=== PATIENT | female | born 1990 | race American Indian/Alaskan Native ===

== ENCOUNTER 2017-02-03 02:38 | Emergency (ER) | payer MEDICAID ==
[2017-02-03 01:34] LABS: Bacteria,Urine 4+ /HPF (Negative); Bilirubin,Urine NEG (Negative); Blood,Urine SM (Negative); Ketones,Urine 20 mg/dL (Negative); Leukocyte Esterase,Urine LG (Negative); Mucus,Urine 3+ /HPF; Nitrite,Urine POS (Negative)
[2017-02-03 01:39] LABS: WBC,Urine > 182.0 /HPF (0.0-6.0)
[2017-02-03 01:44] LABS: Urine Drugs of Abuse Note Disclamer
[~2017-02-03 02:38] MED LIST: LACTATED RINGERS 500 ML IV ONE
--- NOTE | 2017-02-03 02:38 | Event Note ---
Date: 02/03/17 ([place] established) Pt presents with no PNC US done tonight EDC 06/12/17 remainder of US wnl. Pt cleared to return to ED for evaluation of kidney issues. Explained all findings to pt Encouraged her to get into [facility]. All questions addressed. Pt transported to ED by
[2017-02-03] MEDS ORDERED: MACROBID PO ONE (04:26)
[2017-02-03] MEDS ORDERED: TYLENOL PO ONE (04:26)
[2017-02-03 05:13] LABS: Basophils % (Auto) 0.3 % (0.0-1.8); Eosinophils % (Auto) 4.4 % (0.0-4.3); Hematocrit 30.8 % (30.3-42.9); Hemoglobin 9.9 gm/dl (10.1-14.3); Mean Corpuscular HGB Conc 32 % (30-34); Platelet Count 254 K/mm3 (140-440); Red Blood Count 4.72 M/mm3 (3.65-5.03); Red Cell Distribution Width 17.7 % (13.2-15.2); White Blood Count 9.3 K/mm3 (4.5-11.0)
[2017-02-03 05:17] LABS: Mean Corpuscular Hemoglobin 21 pg (28-32); Mean Corpuscular Volume 65 fl (79-97)
[2017-02-03 05:23] LABS: Anion Gap 17 mmol/L; Blood Urea Nitrogen 6 mg/dL (7-17); Carbon Dioxide 23 mmol/L (22-30); Chloride 99.1 mmol/L (98-107); Glucose 84 mg/dL (65-100); Potassium 3.3 mmol/L (3.6-5.0); Sodium 136 mmol/L (137-145)
--- NOTE | 2017-02-03 05:40 | Ultrasound Report ---
FINAL REPORT PROCEDURE: US RENAL BILAT TECHNIQUE: Real-time sonography in multiple planes of the kidneys, ureters and urinary bladder was performed with image documentation. CPT 66586 HISTORY: Right flank pain. Blood in urine. Infection. COMPARISON: No prior studies are available for comparison. FINDINGS: The right kidney measures 11.9 x 7.3 x 6.7 centimeters. Cortical thickness 1.9 centimeters. Mild to moderate right hydronephrosis. No calculus or mass. Left kidney measures 12.1 x 7.2 x 6.4 centimeters. Cortical thickness 2.1 centimeters. No hydronephrosis, mass, or calculus. Limited visualization of the bladder. IMPRESSION: Mild to moderate right hydronephrosis.
--- NOTE | 2017-02-03 08:43 | Ultrasound Report ---
OB ULTRASOUND History: well-being, no care. Technique: Transabdominal ultrasound with Doppler interrogation. Gestation: Single Position: Cephalic Amniotic Fluid: Normal PARIS = normal cm Placenta: Posterior Placental Grade: 0 Heart Rate: 146 BPM Cervical length: 3.3 cm (Normal > 3 cm) NEUROANATOMY VISUALIZED: Choroid Plexus Cisterna Magnum Cerebellum Lateral Ventricle ANATOMY VISUALIZED: Stomach Kidneys Bladder Diaphragm 4 Chamber Heart Heart 3 Vessel Cord Abd. Cord Insert SPINE VISUALIZED: Longitudinal Transverse BPD: 5.1 cm = 21 w 2 d HC: 19.1 cm = 21 w 2 d AC: 16.4 cm = 21 w 3 d FL: 3.8 cm = 22 w 0 d HC/AC Ratio: 1.17 Estimated Weight: 463 grams LMP: Uncertain Clinical age = w d EDC: US Gest. Age = 21 w 3 d EDC: 06/13/17
[2017-02-03 10:00] VITALS: BP 97/43
[2017-02-03] MEDS ORDERED: K-DUR PO ONE (10:21)
--- NOTE | 2017-02-03 10:21 | Emergency Department Report ---
ED Abdominal Pain HPI - General Chief Complaint: Abdominal Pain Stated Complaint: KIDNEY PAIN Time Seen by Provider: 02/03/17 10:05 Source: patient Mode of arrival: Ambulatory Limitations: No Limitations - History of Present Illness Initial Comments: Patient is a 26-year-old female at approximately 21 weeks and 3 days presenting with right lower quadrant and right flank pain. Patient reports no care N1 week history of right-sided flank pain, dysuria, and increased urinary frequency. Associated nausea and vomiting 1 episode. She denies tobacco, alcohol, illicit drug use. Otherwise no fevers, chills, chest pain, shortness of breath, extremity pain, vaginal bleeding, fluid loss, travel, or sick contacts. MD Complaint: abdominal pain -: Gradual Location: RLQ, R flank Severity: moderate Severity scale (0 -10): 8 Quality: aching Consistency: constant Improves With: nothing Worsens With: nothing Associated Symptoms: nausea, vomiting, dysuria - Related Data Previous Rx's Medication Instructions Recorded Last Taken Type Nitrofurantoin Ceiba/M-Cryst 100 mg PO Q12HR #20 capsule 02/03/17 Unknown Rx [Macrobid CAP] Allergies Allergy/AdvReac Type Severity Reaction Status Date / Time No Known Allergies Allergy Verified 04/14/14 23:10 ED Review of Systems ROS: Stated complaint: KIDNEY PAIN Other details as noted in HPI Comment: All other systems reviewed and negative ED Past Medical Hx - Past Medical History Previous Medical History?: Yes Hx Hypertension: No Hx Diabetes: No Hx Deep Vein Thrombosis: No Hx Renal Disease: Yes (Kidney failure in 2005) Hx Sickle Cell Disease: No Hx Seizures: No Hx Asthma: No Hx HIV: No Additional medical history: Right kidney failure, 21 weeks - Surgical History Additional Surgical History: Episiotomy - Social History Smoking Status: Never Smoker - Medications Home Medications: Home Medications Medication Instructions Recorded Confirmed Last Taken Type Nitrofurantoin Ceiba/M-Cryst 100 mg PO Q12HR #20 capsule 02/03/17 Unknown Rx [Macrobid CAP] ED Physical Exam - General Limitations: No Limitations General appearance: alert, in no apparent distress - Head Head exam: Present: atraumatic, normocephalic - Eye Eye exam: Present: normal appearance - ENT ENT exam: Present: mucous membranes moist - Neck Neck exam: Present: normal inspection - Respiratory Respiratory exam: Present: normal lung sounds bilaterally. Absent: respiratory distress - Cardiovascular Cardiovascular Exam: Present: regular rate, normal rhythm. Absent: systolic murmur, diastolic murmur, rubs, gallop - GI/Abdominal GI/Abdominal exam: Present: soft, tenderness (right lower quadrant , right flank ), normal bowel sounds. Absent: distended, guarding, rebound, rigid - Extremities Exam Extremities exam: Present: normal inspection - Back Exam Back exam: Present: normal inspection, full ROM, CVA tenderness (R) - Neurological Exam Neurological exam: Present: alert, oriented X3 - Psychiatric Psychiatric exam: Present: normal affect, normal mood - Skin Skin exam: Present: warm, dry, intact, normal color. Absent: rash ED Course Vital Signs 02/03/17 02/03/17 02/03/17 04:14 04:33 09:59 Temperature 99.1 F 98.8 F Pulse Rate 68 78 Respiratory 18 20 16 Rate Blood Pressure 110/57 Blood Pressure 97/43 [Left] O2 Sat by Pulse 100 100 Oximetry 02/03/17 10:00 Temperature Pulse Rate Respiratory 16 Rate Blood Pressure Blood Pressure [Left] O2 Sat by Pulse 100 Oximetry ED Medical Decision Making - Lab Data Result diagrams: 02/03/17 04:49 02/03/17 04:49 - Radiology Data Radiology results: report reviewed US: reviewed by me, patient is approximately 21weeks and 3 days - Medical Decision Making Pt (+)UTI, patient was given macrobid at 0426 this AM I discussed with the patient importance of care. Pt understood and reports she had no care due to a recent re-location. Pt given a list of providers to follow up with. Pt has no fever, no WBC count, and will be discharged home with macrobid 100mg BID x 10 days. I instructed the patient to follow up with a provider in 1-2 days , return if her sx worsen. Pt understood Critical care attestation.: If time is entered above; I have spent that time in minutes in the direct care of this critically ill patient, excluding procedure time. ED Disposition Clinical Impression: UTI (urinary tract infection) during Disposition: TO HOME OR SELFCARE Is pt being admited?: No Condition: Stable Instructions: Abdominal Pain (ED), Urinary Tract Infection in Women (ED) Prescriptions: Nitrofurantoin Ceiba/M-Cryst [Macrobid CAP] 100 mg PO Q12HR #20 capsule Referrals: WHIT WILHELM MD [Primary Care Provider] - 7 Days Forms: [facility] Discharge Summary Print Language: OCCITAN
[2017-02-03] MEDS ORDERED: NACL 0.9% 1000 ML 1,000 ML IV ONE (10:23)
== END 2017-02-03 13:50 | disposition home or self-care (01) ==
LOC: TRG 02:38 → ED 02:38 → TRG 02:38 → EDSTATUS 02:41 → ED 04:25 → TRG 13:50
DX: O23.32 Infections of other parts of urinary tract in pregnancy, second trimester (principal); Z3A.21 21 weeks gestation of pregnancy; N19 Unspecified kidney failure
CPT/HCPCS: 36415; 51701; 76770; 76805; 80048; 80307; 81001; 85025; 87076; 87086; 87186; 96360; 99284; J7030

== ENCOUNTER 2017-04-27 00:05 | Outpatient (CLI) | payer MEDICAID ==
[2017-04-27] MEDS ORDERED: LACTATED RINGERS 500 ML IV ONE (00:18)
[2017-04-27 00:36] VITALS: BP 124/55
[2017-04-27 01:08] LABS: Bilirubin,Urine NEG (Negative); Blood,Urine NEG (Negative); Ketones,Urine TR mg/dL (Negative); Leukocyte Esterase,Urine SM (Negative); Mucus,Urine 2+ /HPF; Nitrite,Urine NEG (Negative)
--- NOTE | 2017-04-27 10:36 | Ultrasound Report ---
ULTRASOUND BIOPHYSICAL PROFILE: History: Decreased movement Technique: Transabdominal ultrasound with Doppler interrogation. 2 - breathing movements 2 - movements 2 - posture and tone 2 - Qualitative amniotic fluid volume 8 - TOTAL SCORE OF POSSIBLE 8 Heart Rate (bpm) 141
--- NOTE | 2017-04-27 10:37 | Ultrasound Report ---
ULTRASOUND OB LIMITED History: well being Technique: Transabdominal ultrasound with Doppler interrogation. Gestation: Single Position: Cephalic Amniotic Fluid: Normal PARIS = 14.1 cm Placenta: Fundal Placental Grade: 1 Heart Rate: 141 BPM
== END 2017-04-27 02:46 | disposition home or self-care (01) ==
LOC: TRG 00:05
PROVIDERS: ATTEND Obstetrics & Gynecology
DX: O36.8130 Decreased fetal movements, third trimester, not applicable or unspecified (principal); O47.03 False labor before 37 completed weeks of gestation, third trimester; Z3A.34 34 weeks gestation of pregnancy
CPT/HCPCS: 59025; 76815; 76819; 81001

== ENCOUNTER 2017-04-27 16:56 | Outpatient (CLI) | payer MEDICAID ==
[2017-04-27] MEDS ORDERED: LACTATED RINGERS 500 ML IV ONE (17:22)
[2017-04-27] MEDS ORDERED: IMODIUM PO STA (17:37)
[2017-04-27 18:00] LABS: Bacteria,Urine 1+ /HPF (Negative); Bilirubin,Urine NEG (Negative); Blood,Urine NEG (Negative); Ketones,Urine 20 mg/dL (Negative); Leukocyte Esterase,Urine SM (Negative); Mucus,Urine 3+ /HPF; Nitrite,Urine NEG (Negative); Urobilinogen,Urine < 2.0 mg/dL (<2.0)
[2017-04-27] MEDS ORDERED: ZOFRAN IV ONE (18:00)
[2017-04-27] MEDS ORDERED: LACTATED RINGERS 1,000 ML IV SCH (18:00)
[2017-04-27 18:14] VITALS: BP 107/42
[2017-04-27 19:13] LABS: Basophils % (Auto) 0.4 % (0.0-1.8); Eosinophils % (Auto) 2.6 % (0.0-4.3); Hematocrit 29.7 % (30.3-42.9); Hemoglobin 9.1 gm/dl (10.1-14.3); Mean Corpuscular HGB Conc 31 % (30-34); Platelet Count 255 K/mm3 (140-440); Red Blood Count 4.54 M/mm3 (3.65-5.03); Red Cell Distribution Width 16.6 % (13.2-15.2); White Blood Count 8.1 K/mm3 (4.5-11.0)
[2017-04-27 19:20] LABS: Mean Corpuscular Hemoglobin 20 pg (28-32); Mean Corpuscular Volume 65 fl (79-97)
[2017-04-27 19:26] LABS: Alanine Aminotransferase 7 units/L (7-56); Albumin 3.2 g/dL (3.9-5); Alkaline Phosphatase 73 units/L (35-129); Anion Gap 17 mmol/L; BUN/Creatinine Ratio 16.66; Blood Urea Nitrogen 5 mg/dL (7-17); Calcium 8.8 mg/dL (8.4-10.2); Carbon Dioxide 20 mmol/L (22-30); Chloride 101.2 mmol/L (98-107); Glucose 98 mg/dL (65-100); Potassium 3.6 mmol/L (3.6-5.0); Sodium 135 mmol/L (137-145); Total Protein 6.4 g/dL (6.3-8.2)
[2017-04-27] MEDS ORDERED: VISTARIL PO ONE (20:00)
== END 2017-04-27 19:55 | disposition home or self-care (01) ==
LOC: TRG 16:56
PROVIDERS: ATTEND Obstetrics & Gynecology
DX: O47.03 False labor before 37 completed weeks of gestation, third trimester (principal); Z3A.35 35 weeks gestation of pregnancy
CPT/HCPCS: 36415; 80053; 81001; 85025; 96360; J7120; Q0177

== ENCOUNTER 2017-05-08 14:40 | Outpatient (CLI) | payer MEDICAID ==
[2017-05-08] MEDS ORDERED: LACTATED RINGERS 500 ML IV ONE (15:47)
[2017-05-08 15:51] VITALS: BP 106/53
== END 2017-05-08 16:17 | disposition home or self-care (01) ==
LOC: TRG 14:40
PROVIDERS: ATTEND Obstetrics & Gynecology
DX: O47.03 False labor before 37 completed weeks of gestation, third trimester (principal); Z3A.35 35 weeks gestation of pregnancy
CPT/HCPCS: 59025

== ENCOUNTER 2017-05-09 00:10 | Outpatient (CLI) | payer MEDICAID ==
[2017-05-09 00:31] VITALS: BP 108/57
[2017-05-09] MEDS ORDERED: LACTATED RINGERS 500 ML IV ONE (00:33)
[2017-05-09] MEDS ORDERED: NORCO 10/325 PO PRN (01:01)
== END 2017-05-09 01:20 | disposition home or self-care (01) ==
LOC: TRG 00:10
PROVIDERS: ATTEND Obstetrics & Gynecology
DX: O62.9 Abnormality of forces of labor, unspecified (principal); Z3A.36 36 weeks gestation of pregnancy

== ENCOUNTER 2017-05-22 12:15 | Outpatient (CLI) | payer MEDICAID ==
[2017-05-22 13:03] VITALS: BP 133/58
== END 2017-05-22 13:17 | disposition home or self-care (01) ==
LOC: TRG 12:15
PROVIDERS: ATTEND Obstetrics & Gynecology
DX: O47.1 False labor at or after 37 completed weeks of gestation (principal); Z3A.37 37 weeks gestation of pregnancy

== ENCOUNTER 2017-05-23 09:44 | Inpatient (IN) | payer MEDICAID ==
--- NOTE | 2017-05-23 10:26 | Anesthesia Consultation ---
Anesthesia Consult and Med Hx Date of service: 05/23/17 - Airway Anesthetic Teeth Evaluation: Good ROM Head & Neck: Adequate Mental/Hyoid Distance: Adequate Mallampati Class: Class II Intubation Access Assessment: Probably Good - Pulmonary Exam CTA: Yes - Pre-Operative Health Status ASA Pre-Surgery Classification: ASA2 Proposed Anesthetic Plan: Spinal - Pulmonary Hx Asthma: No - Cardiovascular System Hx Hypertension: No - Central Nervous System Hx Seizures: No Hx Psychiatric Problems: No - Endocrine Hx Renal Disease: Yes (Fluid in right kidney) Hx Hypothyroidism: No Hx Hyperthyroidism: No - Hematic Hx Anemia: No Hx Sickle Cell Disease: No - Other Systems Hx Alcohol Use: No - Additional Comments Anesthesia Medical History Comments: NAC previously.
--- NOTE | 2017-05-23 10:26 | Anesthesia Day of Surgery ---
Anesthesia Day of Surgery - Day of Surgery Patient Examined: Yes Patient H&P Reviewed: Yes Patient is NPO: Yes
[2017-05-23] MEDS ORDERED: LACTATED RINGERS 1,000 ML IV SCH (11:00)
[2017-05-23] MEDS ORDERED: PITOCin/NS 20 UNIT/1000ML DRIP 20 UNITS/1,000 ML BAG IV SCH ×2 (11:00→16:00)
[2017-05-23] MEDS ORDERED: REGLAN IV NR (11:00)
[2017-05-23] MEDS ORDERED: PEPCID IV NR (11:00)
[2017-05-23] MEDS ORDERED: BICITRA PO NR (11:00)
[2017-05-23] MEDS ORDERED: ANCEF/STERILE WATER 2 GM/20 ML 2 GM/20 ML SYRINGE IV NR (11:00)
[2017-05-23 11:22] LABS: Basophils % (Auto) 0.2 % (0.0-1.8); Hematocrit 29.6 % (30.3-42.9); Hemoglobin 9.1 gm/dl (10.1-14.3); Mean Corpuscular HGB Conc 31 % (30-34); Platelet Count 302 K/mm3 (140-440); Red Blood Count 4.64 M/mm3 (3.65-5.03); Red Cell Distribution Width 17.4 % (13.2-15.2); White Blood Count 10.4 K/mm3 (4.5-11.0)
[2017-05-23 11:24] LABS: Mean Corpuscular Hemoglobin 20 pg (28-32); Mean Corpuscular Volume 64 fl (79-97)
--- NOTE | 2017-05-23 11:46 | History and Physical Report ---
History of Present Illness Date of examination: 05/23/17 Date of admission: 05/23/17 09:44 Chief complaint: my water broke History of present illness: Pt is a 27 year old -[place] female JACKLYN 06/06/17 at 38w0d who presents with advanced cervical dilation of 5cm and rupture of membranes. She denies vaginal bleeding. She has a h/o 4th degree perineal laceration and two reconstructive surgery x 2 and was scheduled for a primary section on 05/30/17. She has had care at [facility] since entry into care at 25 wks complicated by h/o 4th degree perineal laceration, cystitis s/p antibiotic treatment, genital herpes without lesion or prodrome, anemia on iron thrice daily, and obesity s/p M referral. She is GBS unknown because she had no visits from 32 wks until yesterday. She desires tubal ligation. Past History Past Medical History: kidney stones (2004 ), hematologic disorders (anemia ) Past Surgical History: [employer]/uterine surgery (perineal repair x 2 ) [employer] History: herpes Family/Genetic History: diabetes, heart disease, hypertension, stroke Social history: no significant social history - Obstetrical History Expected Date of Delivery: 06/06/17 Actual Gestation: 38 Week(s) 0 Day(s) : 4 Para: 3 Hx # Term Pregnancies: 3 Number of Pregnancies: 0 Spontaneous Abortions: 0 Induced : 0 Number of Living Children: 3 Medications and Allergies Allergies Allergy/AdvReac Type Severity Reaction Status Date / Time No Known Allergies Allergy Verified 04/14/14 23:10 Home Medications Medication Instructions Recorded Confirmed Last Taken Type Nitrofurantoin Scurry/M-Cryst 100 mg PO Q12HR #20 capsule 02/03/17 Unknown Rx [Macrobid CAP] Active Meds: Active Medications Citric Acid/Sodium Citrate (Bicitra) 30 ml PO ONCE NR Stop: 05/23/17 18:00 Last Admin: 05/23/17 11:40 Dose: 30 ml Famotidine (Pepcid) 20 mg IV ONCE NR Stop: 05/23/17 18:00 Last Admin: 05/23/17 11:38 Dose: 20 mg Cefazolin Sodium (Ancef/Sterile Water 2 Gm/20 Ml) 2 gm in 20 mls @ 80 mls/hr IV PREOP NR PRN Reason: Protocol Stop: 05/23/17 15:00 Lactated Ringer's (Lactated Ringers) 1,000 mls @ 2,250 mls/hr IV PREOP VIKTOR Stop: 05/24/17 11:27 Oxytocin/Sodium Chloride (Pitocin/Ns 20 Unit/1000ml Drip) 20 units in 1,000 mls @ 0 mls/hr IV TITR VIKTOR PRN Reason: As Directed Influenza Virus Vaccine Quadrival (Fluarix Quad [id number](36 Mos+)) 0.5 ml IM .ONCE ONE Stop: 05/23/17 11:30 Metoclopramide HCl (Reglan) 10 mg IV ONCE NR Stop: 05/23/17 18:00 Last Admin: 05/23/17 11:39 Dose: 10 mg Review of Systems All systems: negative - Vital Signs Vital signs: Vital Signs Temp 98.4 F 05/23/17 10:23 Temp Pulse Resp BP Pulse Ox 98.4 F 05/23/17 10:23 - Physical Exam Breasts: Positive: deferred Cardiovascular: Regular rate Lungs: Positive: Clear to auscultation Abdomen: Positive: soft (obese ) Uterus: Positive: enlarged (gravid ) Extremities: Positive: normal - Obstetrical FHR: category 2 Uterine Contraction Monitor Mode: External Cervical Dilatation: 5 (per RN ) Results Result Diagrams: 05/23/17 10:45 Abnormal lab results 05/23/17 Range/Units 10:45 Hgb 9.1 L (10.1-14.3) gm/dl Hct 29.6 L (30.3-42.9) % MCV 64 L (79-97) fl MCH 20 L (28-32) pg RDW 17.4 H (13.2-15.2) % Scurry % (Auto) 10.2 H (0.0-7.3) % Scurry # 1.1 H (0.0-0.8) K/mm3 All other labs normal. Assessment and Plan A: IUP at 38w0d PROM H/o 4th degree perineal laceration with plan for scheduled delivery Anemia Obesity Genital Herpes Undesired Fertility P: Admit to labor and delivery and proceed with primary section, bilateral tubal ligation and other indicated procedures.
[2017-05-23] MEDS ORDERED: Fluarix Quad 2017-2018(36 MOS+) IM ONE (12:00)
[2017-05-23] MEDS ORDERED: SUBLIMAZE ONE (12:12)
[2017-05-23] MEDS ORDERED: ePHEDrine SULFATE ONE (12:30)
[2017-05-23] MEDS ORDERED: LACTATED RINGERS 1,000 ML ONE (12:32)
[2017-05-23] MEDS ORDERED: ZOFRAN ONE (12:39)
[2017-05-23] MEDS ORDERED: ROBINUL ONE (12:44)
--- NOTE | 2017-05-23 13:52 | Post Anesthesia Evaluation ---
- Post Anesthesia Evaluation Patient Participated: Yes Airway Patent: Yes Stable Respiratory Function: Yes Nausea/Vomiting: No Temp > 96.8F: Yes Pain Manageable: Yes Adequeate Hydration: Yes Anesthesia Complications: No Block Receding Appropriately: Not Applicable Patient on Ventilator: No
--- NOTE | 2017-05-23 14:41 | Procedure Note ---
OB Delivery Note - Delivery Date of Delivery: 05/23/17 Surgeon: HARLEY MONTALVO Estimated blood loss: other (800 mL) - Section Preop diagnosis: other (H/o 4t degree perineal laceration ) Postop diagnosis: same section procedure: section, primary low transverse Disposition: PACU Complications: none Narrative: Please see operative report. - A at 1 minute: 8 at 5 minutes: 9 Infant Gender: Female (3309g (7lb 5oz) @ 1252 pm)
--- NOTE | 2017-05-23 14:43 | Operative Report ---
Operative Report Operative Report: Date of procedure: May 23, 2017 Preoperative diagnosis: 1) IUP at 38w0d 2) Premature Rupture of Membranes 3) H/ o Fourth Degree perineal laceration 4) Obesity Postoperative diagnosis: Same Procedure: Primary low transverse section Surgeon: Prema Pickering M.D. Anesthesia: Spinal Findings: 1) Viable female , Apgars 8 and 9, weight 3309g, (7 lb 5 oz). Nuchal cord x 1 2) Normal-appearing uterus ovaries and tubes Estimated blood loss: 800 mL IV fluids: 2000 mL Urine output: 100 mL, clear at the end of the procedure Drains: Rabago to gravity Specimens: None Complications: None. Counts correct x 3 Disposition: Stable to PACU Indication for procedure: Pt is a 27 year old -Bangl[place] female at 38w0d presents with gross rupture of membranes and a h/o a fourth degree perineal laceration scheduled for at 39 wks. The decision was made to proceed with primary section. Operation in detail: After the risks, benefits, alternatives and complications were explained to the patient she gave informed consent for the procedure. She was subsequently taken to the operating room where spinal-epidural anesthesia was noted to be adequate. She was subsequently placed in the dorsal supine position with leftward tilt and prepped and draped in a normal sterile fashion. heart tones were noted to be in the 140s prior to incision. A timeout was performed. A Pfannenstiel skin incision was made with the knife and carried down to the layer of the fascia with the Bovie. The fascia was incised in the midline and the fascial incision was extended bilaterally with the Bovie. Attention was then turned to the superior aspect of the incision which was grasped with two Kochers, tented up, and dissected off the rectus muscles. Attention was then turned to the inferior aspect of the incision which was grasped with two Kochers , tented up and dissected off the rectus muscles. The rectus muscles were then in the midline for adequate visualization. The peritoneum was then entered bluntly. The peritoneal incision was extended with good visualization of the bladder. The peritoneal incision was then stretched. An Aiden self- retaining retractor was placed for visualization. The bladder blade was placed. The vesicouterine peritoneum was grasped with smooth pickups and incised with Metzenbaum scissors. Metzenbaum scissors were used to extend the incision bilaterally. The bladder flap was then created digitally and the bladder blade was replaced. A transverse incision was made in the lower uterine segment with a knife and extended bilaterally with the bandage scissors. The head was delivered without difficulty followed by shoulders and body. was bulb suctioned at delivery. The cord was clamped and cut and the was handed to NICU staff in attendance. Cord blood was collected. The placenta was then delivered manually. The uterus was then exteriorized and cleared of all clots and debris. The hysterotomy was then reapproximated with 0 Vicryl in a running locked fashion. The hysterotomy was inspected and hemostasis was noted. The Aiden self- retaining retractor was removed. The gutters were irrigated and cleared of all clots and debris. The hysterotomy was again inspected and noted to be hemostatic. Surgicel was placed over the hysterotomy. The peritoneum was then reapproximated with 2-0 Vicryl in an interrupted fashion. The rectus muscles were covered with Surgicel and noted to be hemostatic. The fascia was reapproximated with 0 Vicryl in a running fashion. The skin was reapproximated with 4-0 Vicryl in a subcuticular fashion. The incision was then covered with steri strips and a pressure dressing. The procedure was then ended. The patient tolerated the procedure well and was taken to the PACU in stable condition. All instrument, lap, and needle counts were correct 3.
[2017-05-23] MEDS ORDERED: BENADRYL IV PRN (15:00)
[2017-05-23] MEDS ORDERED: SODIUM CHLORIDE FLUSH SYRINGE 10 ML IV NR (15:32)
[2017-05-23] MEDS ORDERED: ZOFRAN IV PRN ×2 (15:32→16:00)
[2017-05-23] MEDS ORDERED: TORADOL IV PRN (15:32)
[2017-05-23] MEDS ORDERED: MORPHINE IV PRN ×4 (15:32→16:00)
[2017-05-23] MEDS ORDERED: SODIUM CHLORIDE FLUSH SYRINGE 10 ML IV PRN (16:00)
[2017-05-23] MEDS ORDERED: NARCAN 0.4 MG/1 ML IV PRN ×2 (16:00)
[2017-05-23] MEDS ORDERED: D5LR 1,000 ML IV SCH (16:00)
[2017-05-23] MEDS ORDERED: TYLENOL PO PRN (16:00)
[2017-05-23] MEDS ORDERED: TUCKS PAD TP PRN (16:00)
[2017-05-23] MEDS ORDERED: LANSINOH TP PRN (16:00)
[2017-05-23] MEDS ORDERED: MYLICON PO PRN (16:00)
[2017-05-23 16:11] LABS: Hematocrit 28.5 % (30.3-42.9)
[2017-05-23] MEDS: TORADOL IV PRN ×2 (17:35→23:23)
[2017-05-23] MEDS: ANCEF/NS 1 GM/50 ML 1 GM/50 ML BAG IV SCH (20:27)
[2017-05-23] MEDS: FEOSOL PO SCH (22:07)
[2017-05-24] MEDS: ANCEF/NS 1 GM/50 ML 1 GM/50 ML BAG IV SCH (04:25)
[2017-05-24] MEDS: TORADOL IV PRN (05:37)
[2017-05-24] MEDS ORDERED: BOOSTRIX IM ONE (06:00)
[2017-05-24 06:22] LABS: Hematocrit 25.3 % (30.3-42.9); Hemoglobin 7.9 gm/dl (10.1-14.3)
[2017-05-24] MEDS ORDERED: PRENATAL VITAMIN PO SCH (10:00)
[2017-05-24] MEDS ORDERED: M-M-R II VACCINE SUB-Q ONE (11:00)
--- NOTE | 2017-05-24 13:16 | Progress Note ---
Assessment and Plan A/P POD # 1 s/p c/sec for 4th degree tear and repair tolerating diet pain controlled bleeding decreased deisres depo/nexplanon for control consider d/c home tomorrow Subjective - Subjective Date of service: 05/24/17 Principal diagnosis: Primary c/sec for 4th degree Patient reports: appetite normal, voiding normally, pain well controlled, ambulating normally [place]: doing well Objective - Vital Signs Latest vital signs: Vital Signs Temp Pulse Resp BP BP Pulse Ox 05/24/17 08:16 98.8 F 16 117/50 05/24/17 04:00 98.6 F 92 H 18 103/53 05/24/17 00:55 97.8 F 73 20 124/62 05/23/17 20:40 98 F 73 20 111/56 05/23/17 16:20 97.7 F 67 18 108/56 05/23/17 15:37 110 H 15 93/43 98 05/23/17 15:35 97.5 F L 78 16 106/49 05/23/17 15:00 78 18 97/42 05/23/17 14:50 97.5 F L 92 H 18 99/39 100 05/23/17 14:40 72 18 90/36 100 05/23/17 14:30 67 20 91/38 100 05/23/17 14:20 62 18 88/32 100 05/23/17 14:10 71 19 88/35 100 05/23/17 14:00 78 20 104/44 100 05/23/17 13:50 68 18 91/36 100 05/23/17 13:44 99 05/23/17 13:38 97.7 F 74 18 91/36 Intake and Output 05/23/17 05/24/17 05/24/17 23:59 07:59 15:59 Intake Total 410 240 Output Total 1400 800 Balance -990 -560 Intake: IV 50 ANCEF/NS 1 GM/50 ML 1 gm 50 In 50 ml @ 100 mls/hr IV Q8H [facility] Rx#:[id number] Oral 240 240 Intake, Free Water 120 Output: Urine 1400 800 Indwelling Catheter 1400 400 Void 400 Other: Total, Intake Amount 240 240 Total, Output Amount 900 400 - Exam Breasts: Present: normal Cardiovascular: Present: Regular rate, Normal S1 Lungs: Present: Clear to auscultation, Normal air movement Abdomen: Present: normal appearance, soft, normal bowel sounds. Absent: distention, tenderness Vulva: both: normal Uterus: Present: normal, firm, fundal height below umbilicus. Absent: bogginess , tenderness Deep Tendon Reflex Grade: Normal +2 Incision: Present: normal, dressed - Labs Labs: Abnormal lab results 05/23/17 05/24/17 Range/Units Unknown 06:03 Hgb 9.0 L 7.9 L (10.1-14.3) gm/dl Hct 28.5 L 25.3 L (30.3-42.9) %
[2017-05-24] MEDS: FEOSOL PO SCH ×2 (13:45→22:20)
[2017-05-24] MEDS: PERCOCET 5/325 PO PRN ×2 (13:45→20:13)
[2017-05-24] MEDS: MOTRIN PO PRN (20:13)
[2017-05-24] MEDS: MILK OF MAGNESIA PO SCH (20:17)
[2017-05-25] MEDS: MILK OF MAGNESIA PO SCH (02:17)
[2017-05-25] MEDS: PERCOCET 5/325 PO PRN ×2 (05:14→14:30)
[2017-05-25] MEDS: MOTRIN PO PRN (05:14)
--- NOTE | 2017-05-25 16:14 | Discharge Summary ---
Providers - Providers Date of Admission: 05/23/17 09:44 Date of discharge: 05/25/17 Attending physician: ROSANNE MOSER MD 05/23/17 15:32 Consult to Psychiatric Attendant [CONS] Routine Reason For Exam: Primary care physician: ROSANNE MOSER MD Hospitalization Reason for admission: section Delivery: Procedure: section, primary low transverse Episiotomy: none Laceration: none Incision: normal, dry, intact Other procedures: none complications: none Discharge diagnosis: IUP at term delivered [place] baby: female Hospital course: POD#2 doing well. ambulting weel. tolerated diet d/c home on pod #2 female bonding with baby d/c home to f/u for incision check in 2 weeks Condition at discharge: Good Disposition: DC-01 TO HOME OR SELFCARE Plan - Discharge Medications Prescriptions: Ibuprofen [Motrin] 600 mg PO Q8H PRN #30 tablet PRN Reason: Pain oxyCODONE /ACETAMINOPHEN [Percocet 5/325] 1 tab PO Q6HR PRN #30 tablet PRN Reason: Pain - Provider Discharge Summary Activity: routine, no sex for 6 weeks, no strenuous exercise Diet: routine Instructions: routine Additional instructions: [] Smoking cessation referral if applicable(refer to patient education folder for contact #) [] Refer to [facility] Booklet Call your doctor immediately for: * Fever > 100.5 * Heavy vaginal bleeding ( >1 pad per hour) * Severe persistent headache * Shortness of breath * Reddened, hot, painful area to leg or breast * Drainage or odor from incision. * Keep incision clean and dry at all times and follow doctor's instructions regarding bathing/showering - Follow up plan Follow up: ROSANNE MOSER MD [Primary Care Provider] - 14 Days
--- NOTE | 2017-05-25 16:14 | Progress Note ---
Assessment and Plan A/P POD # 2 s/p c/sec for 4th degree tear and repair tolerating diet pain controlled bleeding decreased VSS d/c home in stable conditionto f/u in 4 weeks Subjective - Subjective Date of service: 05/25/17 Principal diagnosis: Primary c/sec for 4th degree Patient reports: appetite normal, voiding normally, pain well controlled, flatus , ambulating normally : doing well, nursing well Objective - Vital Signs Latest vital signs: Vital Signs Temp Pulse Resp BP BP Pulse Ox 05/25/17 10:06 97.5 F L 75 18 110/46 98 05/25/17 00:25 98.8 F 60 16 113/71 05/24/17 16:35 98.7 F 84 16 115/56 Intake and Output 05/25/17 05/25/17 05/25/17 07:59 15:59 23:59 Intake Total 300 360 Balance 300 360 Intake: Oral 360 Intake, Free Water 300 Other: Total, Intake Amount 360 # Voids Void 1 - Exam Breasts: Present: deferred Cardiovascular: Present: Regular rate, Normal S1 Lungs: Present: Clear to auscultation, Normal air movement Abdomen: Present: normal appearance, soft, normal bowel sounds. Absent: distention, tenderness, guarding Vulva: both: normal Uterus: Present: normal, firm, bogginess, tenderness, fundal height below umbilicus Extremities: Present: normal Deep Tendon Reflex Grade: Normal +2 Incision: Present: normal, dry, intact
[2017-05-25] MEDS ORDERED: Fluarix Quad 2017-2018(36 MOS+) IM ONE (18:00)
[2017-05-25 18:31] VITALS: BP 114/78
== END 2017-05-25 18:34 | disposition home or self-care (01) | DRG 765 ==
LOC: APU 09:44 → OB 15:16
PROVIDERS: ADMIT Obstetrics & Gynecology; ATTEND Obstetrics & Gynecology
PROC: 10D00Z1 Extraction of Products of Conception, Low, Open Approach (ICD-10-PCS; principal; 2017-05-23)
DX: O42.02 Full-term premature rupture of membranes, onset of labor within 24 hours of rupture (principal); O98.32 Other infections with a predominantly sexual mode of transmission complicating childbirth; Z37.0 Single live birth; Z3A.38 38 weeks gestation of pregnancy; O99.02 Anemia complicating childbirth; D64.9 Anemia, unspecified; O99.214 Obesity complicating childbirth; E66.9 Obesity, unspecified; Z68.39 Body mass index [BMI] 39.0-39.9, adult; A60.00 Herpesviral infection of urogenital system, unspecified; O69.81X0 Labor and delivery complicated by cord around neck, without compression, not applicable or unspecified
CPT/HCPCS: 36415; 85014; 85018; 85025; 86592; 86850; 86900; 86901; 90471; 90686; 90715; 99211; A6250; G0463; J0690; J1885; J2270; J2405; J2590; J2765; J3010; J7120; J7121

== ENCOUNTER 2018-09-14 08:24 | Outpatient (CLI) | payer MEDICAID ==
[2018-09-14] MEDS ORDERED: LACTATED RINGERS 500 ML IV ONE (08:32)
[2018-09-14 08:40] VITALS: BP 115/58
[2018-09-14 09:29] LABS: Amphetamine Screen,Urine PRESUMPTIVE NEGATIVE; Benzodiazepines Screen,Urine PRESUMPTIVE NEGATIVE; Cannabinoid Screen,Urine PRESUMPTIVE NEGATIVE; Cocaine Screen,Urine PRESUMPTIVE NEGATIVE; Methadone Screen,Urine PRESUMPTIVE NEGATIVE; Opiate Screen,Urine PRESUMPTIVE NEGATIVE
[2018-09-14 09:31] LABS: Bilirubin,Urine NEG (Negative); Blood,Urine NEG (Negative); Color,Urine Yellow (Yellow); Mucus,Urine 2+ /HPF; Protein,Urine <15 mg/dL mg/dL (Negative); RBC,Urine < 1.0 /HPF (0.0-6.0)
[2018-09-14] MEDS ORDERED: TYLENOL PO ONE (10:00)
== END 2018-09-14 10:12 | disposition home or self-care (01) ==
LOC: TRG 08:24
PROVIDERS: ATTEND Obstetrics & Gynecology
DX: O47.02 False labor before 37 completed weeks of gestation, second trimester (principal); Z3A.23 23 weeks gestation of pregnancy
CPT/HCPCS: 80307; 81001

== ENCOUNTER 2018-11-14 16:20 | Outpatient (CLI) | payer MEDICAID ==
[2018-11-14] MEDS ORDERED: LACTATED RINGERS 500 ML IV ONE (18:30)
[2018-11-14 20:59] VITALS: BP 111/76
--- NOTE | 2018-11-14 22:02 | Ultrasound Report ---
PROCEDURE: US OB >= 14 WEEKS FETUS TECHNIQUE: Real-time transabdominal sonography of the uterus, placenta, amniotic fluid, adnexa, and fetus was performed with image documentation. Measurements were obtained to determine age/size. M-mode Doppler was used to document heartbeat. ADDITIONAL GESTATION: None HISTORY: COMPLETE OB COMPARISONS: None. FINDINGS: MATERNAL: Uterus and cervix: The cervix is closed measures 4.4 cm in length. Adnexa and ovaries: Not visualized. IUP: Single live intrauterine gestation. Position: Cephalic Placental position: Fundal, without previa . Grade 1 Amniotic fluid volume Normal. PARIS is 12.7 cm. Cardiac activity: Regular rhythm at 129 bpm. ANATOMY: Face/lips/nose: Normal. Cerebral ventricles: Normal. Cisterna magna/cerebellum: Normal. Heart: Normal. Stomach: Normal. Umbilical cord: 3 vessel umbilical cord with normal insertion. Kidneys: Normal. Bladder: Normal. Spine: Normal. Extremities: Normal. BIOMETRY: Biparietal diameter: 7.5 cm. Head circumference: 27.5 cm. abdominal circumference: 25.1 cm. Femur length: 5.9 cm. Ratio biometry: Normal . Estimated Weight: 1484 grams +/- grams. ounces +/- .ounces. . percentile. Mean Gestational Age (composite criteria) based on today's measurements: 30 weeks and 1 day. Estimated Due Date (earliest scan): 01/22/2019. IMPRESSION: Single live intrauterine gestation at 30 weeks and 1 day. Estimated due date: 01/22/2019. No anatomic abnormality. This document is electronically signed by Yong Infante MD., November 14 2018 10:00:27 PM ET
== END 2018-11-14 21:05 | disposition home or self-care (01) ==
LOC: TRG 16:20
PROVIDERS: ATTEND Obstetrics & Gynecology
DX: O47.03 False labor before 37 completed weeks of gestation, third trimester (principal); Z3A.32 32 weeks gestation of pregnancy
CPT/HCPCS: 59025; 76805

== ENCOUNTER 2018-12-16 23:13 | Outpatient (CLI) | payer MEDICAID ==
[2018-12-16] MEDS ORDERED: LACTATED RINGERS 1,000 ML IV ONE (23:59)
[2018-12-17 01:02] LABS: Bilirubin,Urine NEG (Negative); Blood,Urine NEG (Negative); Color,Urine Yellow (Yellow); Mucus,Urine 3+ /HPF; Protein,Urine <15 mg/dL mg/dL (Negative)
[2018-12-17 01:05] VITALS: BP 122/54
[2018-12-17] MEDS ORDERED: LACTATED RINGERS 1,000 ML IV ONE (01:19)
[2018-12-17] MEDS ORDERED: MORPHINE IM ONE (02:13)
[2018-12-17] MEDS ORDERED: PHENERGAN PO ONE (02:14)
[2018-12-17] MEDS ORDERED: PHENERGAN ONE (02:21)
[2018-12-17 03:20] LABS: Hematocrit 31.4 % (30.3-42.9); Mean Corpuscular HGB Conc 32 % (30-34); Platelet Count 252 K/mm3 (140-440); Red Blood Count 4.65 M/mm3 (3.65-5.03); Red Cell Distribution Width 16.6 % (13.2-15.2)
[2018-12-17 03:23] LABS: Mean Corpuscular Volume 68 fl (79-97)
== END 2018-12-17 02:40 | disposition home or self-care (01) ==
LOC: TRG 23:13
PROVIDERS: ATTEND Obstetrics & Gynecology
DX: O62.9 Abnormality of forces of labor, unspecified (principal); Z3A.36 36 weeks gestation of pregnancy; Z87.891 Personal history of nicotine dependence
CPT/HCPCS: 36415; 59025; 81001; 85027; 86592; 86850; 86900; 86901; 96360; 96361; 96372; J2270; J7120; Q0169

== ENCOUNTER 2018-12-31 22:58 | Outpatient (CLI) | payer MEDICAID ==
[2019-01-01 00:23] VITALS: BP 104/54
[2019-01-01] MEDS ORDERED: VISTARIL PO ONE (01:09)
== END 2019-01-01 01:34 | disposition home or self-care (01) ==
LOC: TRG 22:58
PROVIDERS: ATTEND Obstetrics & Gynecology
DX: O42.92 Full-term premature rupture of membranes, unspecified as to length of time between rupture and onset of labor (principal); Z3A.28 28 weeks gestation of pregnancy
CPT/HCPCS: 59025; Q0177

== ENCOUNTER 2019-01-03 04:43 | Inpatient (IN) | payer MEDICAID ==
[2019-01-03] MEDS ORDERED: LACTATED RINGERS 2,000 ML ONE (05:40)
[2019-01-03] MEDS ORDERED: BRETHINE ONE (05:41)
[2019-01-03] MEDS ORDERED: BICITRA ONE (06:02)
[2019-01-03] MEDS ORDERED: REGLAN ONE (06:02)
[2019-01-03] MEDS ORDERED: ANCEF/STERILE WATER 2 GM/20 ML 2 GM/20 ML SYRINGE IV ONE (06:02)
[2019-01-03] MEDS ORDERED: PEPCID IV ONE ×2 (06:02→06:03)
[2019-01-03] MEDS ORDERED: PITOCin/NS 20 UNIT/1000ML DRIP 40,000 MILLIUNITS/2,000 ML BAG IV ONE (06:02)
[2019-01-03] MEDS ORDERED: REGLAN IV ONE (06:03)
[2019-01-03] MEDS ORDERED: BICITRA PO ONE (06:03)
[2019-01-03 06:18] LABS: Basophils # (Auto) 0.1 K/mm3 (0.0-0.1); Basophils % (Auto) 0.5 % (0.0-1.8); Eosinophils # (Auto) 0.4 K/mm3 (0.0-0.4); Eosinophils % (Auto) 3.2 % (0.0-4.3); Hematocrit 31.5 % (30.3-42.9); Hemoglobin 10.2 gm/dl (10.1-14.3); Lymphocytes # (Auto) 2.8 K/mm3 (1.2-5.4); Lymphocytes % (Auto) 21.1 % (13.4-35.0); Mean Corpuscular HGB Conc 32 % (30-34); Monocytes # (Auto) 1.2 K/mm3 (0.0-0.8); Monocytes % (Auto) 9.3 % (0.0-7.3); Platelet Count 257 K/mm3 (140-440); Red Blood Count 4.78 M/mm3 (3.65-5.03); Red Cell Distribution Width 16.7 % (13.2-15.2)
[2019-01-03 06:19] LABS: Mean Corpuscular Volume 66 fl (79-97)
[2019-01-03] MEDS ORDERED: SUBLIMAZE ONE (06:22)
--- NOTE | 2019-01-03 06:23 | History and Physical Report ---
History of Present Illness Date of examination: 01/03/19 Date of admission: 01/03/19 06:09 Chief complaint: contractions History of present illness: This is a 28 yo at 37 WEEKS WITH ONLY ONE VISIT TO [place]. lIMITED RECORDS. PATIENT is a patient referred to [facility] for obesity and EIF and hx of 4th degree. She has not returned since 30 weeks. She is here today for contractions noted to be 4cm and loretta with previous csec. Past History Past Medical History: no pertinent history Past Surgical History: section (x1) MECHANICAL TECHNICIAN History: trichomonas Family/Genetic History: diabetes, hypertension, stroke, other (seizure disorder) Social history: single. denies: smoking, alcohol abuse, prescription drug abuse - Obstetrical History Expected Date of Delivery: 01/22/19 Actual Gestation: 37 Week(s) 2 Day(s) : 5 Para: 4 Hx # Term Pregnancies: 1 Number of Pregnancies: 3 Spontaneous Abortions: 0 Induced : 0 Number of Living Children: 4 Medications and Allergies Allergies Allergy/AdvReac Type Severity Reaction Status Date / Time No Known Allergies Allergy Verified 09/14/18 08:31 Home Medications Medication Instructions Recorded Confirmed Last Taken Type No Known Home Medications [No 12/16/18 12/16/18 Unknown History Reported Home Medications] Active Meds: Active Medications Oxytocin/Sodium Chloride (Pitocin/Ns 20 Unit/1000ml Drip) 20 units in 1,000 mls @ 0 mls/hr IV TITR VIKTOR Lactated Ringer's (Lactated Ringers) 1,000 mls @ 2,250 mls/hr IV PREOP VIKTOR Stop: 01/04/19 07:27 Cefazolin Sodium (Ancef/Sterile Water 2 Gm/20 Ml) 2 gm in 20 mls @ 80 mls/hr IV PREOP NR; Protocol Stop: 01/03/19 07:14 Review of Systems All systems: negative Genitourinary: contractions - Vital Signs Vital signs: Vital Signs Pulse BP 97 H 104/54 01/03/19 05:06 01/03/19 05:06 Temp Pulse Resp BP Pulse Ox 97 H 104/54 01/03/19 05:06 01/03/19 05:06 - Physical Exam Breasts: Positive: normal Cardiovascular: Regular rate, Normal S1 Lungs: Positive: Clear to auscultation, Normal air movement Abdomen: Positive: normal appearance, soft, normal bowel sounds. Negative: dis tention, tenderness, guarding Genitourinary (Female): Positive: normal external genitalia, normal perenium Vulva: both: normal Vagina: Positive: normal moisture Uterus: Positive: normal size Anus/Rectum: Positive: normal perianal skin Extremities: Positive: normal Deep Tendon Reflex Grade: Normal +2 - Obstetrical FHR: category 1 Cervical Dilatation: 4 Cervical Effacement Percentage: 80 station: -1 Uterine Contraction Pattern: Regular Uterine Tone Measurement Phase: Contraction Uterine Contraction Intensity: Mild Results Result Diagrams: 01/03/19 Unknown Abnormal lab results 01/03/19 Range/Units Unknown WBC 13.4 H (4.5-11.0) K/mm3 MCV 66 L (79-97) fl MCH 21 L (28-32) pg RDW 16.7 H (13.2-15.2) % [place] % (Auto) 9.3 H (0.0-7.3) % [place] # 1.2 H (0.0-0.8) K/mm3 Seg Neutrophils # 8.8 H (1.8-7.7) K/mm3 All other labs normal. 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
[2019-01-03] MEDS ORDERED: VITAMIN K *NICU IM ONE (06:40)
[2019-01-03] MEDS ORDERED: ENGERIX-B IM ONE (06:41)
[2019-01-03] MEDS ORDERED: ANCEF/STERILE WATER 2 GM/20 ML 2 GM/20 ML SYRINGE IV NR (07:00)
[2019-01-03] MEDS ORDERED: PITOCin/NS 20 UNIT/1000ML DRIP 20 UNITS/1,000 ML BAG IV SCH ×2 (07:00→09:00)
[2019-01-03] MEDS ORDERED: LACTATED RINGERS 1,000 ML IV SCH (07:00)
[2019-01-03] MEDS ORDERED: NACL 0.9% IR ONE (07:17)
[2019-01-03] MEDS ORDERED: WATER FOR IRRIG STERILE IR ONE (07:17)
[2019-01-03] MEDS ORDERED: NEO SYNEPHRINE/NS Syringe(OR USE) IV ONE (08:00)
--- NOTE | 2019-01-03 08:38 | Procedure Note ---
OB Delivery Note - Delivery Date of Delivery: 01/03/19 Surgeon: ROSANNE MOSER Estimated blood loss: other (700cc) - Section Preop diagnosis: repeat Disposition: PACU Complications: none Narrative: see op note - A at 1 minute: 8 at 5 minutes: 8 Gender: Female (weight 5 pounds 15.5 oz)
--- NOTE | 2019-01-03 08:40 | Operative Report ---
Operative Report Operative Report: Date of procedure: January 03, 2019 Preoperative diagnosis: 1) IUP at 37d 2) Previous 3) Active labor 4) Poor care Postoperative diagnosis: Same Procedure: Primary low transverse section Surgeon: Janina Deleon MD Anesthesia: Regional Findings: 1) Viable female , Apgars[ 8 and 6, weight 2709g, (5 lb 15.5 oz) in cephalic presentation 2) Normal-appearing uterus ovaries and tubes Estimated blood loss: 700 mL IV fluids: 2000 mL Urine output: 100 mL, blood tinged at the end of the procedure Drains: [place] to gravity Specimens: Placenta to pathology Complications:None. Counts correct x 3 Disposition: Stable to PACU Indication for procedure: Pt is a 28 year old primigravida at 37+2d who was admitted active labor , previous csec at term. Operation in detail: After the risks, benefits, alternatives and complications were explained to the patient she gave informed consent for the procedure. She was subsequently taken to the operating room where regional anesthesia was noted to be adequate. She was subsequently placed in the dorsal supine position with leftward tilt and prepped and draped in a normal sterile fashion. A timeout was performed. A Pfannenstiel skin incision was made with the knife and carried down to the layer of the fascia with the Bovie. The fascia was incised in the midline and the fascial incision was extended bilaterally with the Bovie. Attention was then turned to the superior aspect of the incision which was grasped with two Kochers, tented up, and dissected off the rectus muscles. Attention was then turned to the inferior aspect of the incision which was grasped with two Kochers, tented up and dissected off the rectus muscles. The rectus muscles were then in the midline and partially transected for adequate visualization. The peritoneum was then entered bluntly. The peritoneal incision was extended with good visualization of the bladder. The peritoneal incision was then stretched. An Aiden self-retaining retractor was placed for visualization. The bladder blade was placed. The vesicouterine peritoneum was grasped with smooth pickups and incised with Metzenbaum scissors. Metzenbaum scissors were used to extend the incision bilaterally. The bladder flap was then created digitally and the bladder blade was replaced. A transverse incision was made in the lower uterine segment with a knife and extended bilaterally with the bandage scissors. The head was delivered with some difficulty with the assistance of a vaginal hand followed by shoulders and body. was bulb suctioned at delivery. The cord was clamped and cut and the was handed to NICU staff in attendance. Cord blood was collected. The placenta was then delivered manually. The uterus was then exteriorized and cleared of all clots and debris. The hysterotomy was then reapproximated with 0 Vicryl in a running locked fashion. A second layer of the same suture was used in imbricating fashion. An extension into the lower uterine segment on the left side was repaired with 2-0 Vicryl in a running locked fashion. The hysterotomy was inspected and hemostasis was noted. The Aiden self-retaining retractor was removed. The gutters were irrigated and cleared of all clots and debris. The hysterotomy was again inspected and noted to be hemostatic. Surgicel was placed over the hysterotomy. The peritoneum was reapproximated with 2-0 Vicryl in a running fashion incorporating the rectus muscles. The rectus muscles were covered with Surgicel. The fascia was reapproximated with 0 Vicryl in a running fashion. The subcutaneous tissue was reapproximated with 3-0 Vicryl in a running fashion. The skin was reapproximated with 4-0 Vicryl in a subcuticular fashion. The incision was then covered with steri strips and a pressure dressing. The procedure was then ended. The patient tolerated the procedure well and was taken to the PACU in stable condition. All instrument, lap, and needle counts were correct 3.
--- NOTE | 2019-01-03 08:48 | Post Anesthesia Evaluation ---
- Post Anesthesia Evaluation Patient Participated: Yes Airway Patent: Yes Stable Respiratory Function: Yes Nausea/Vomiting: No Temp > 96.8F: Yes Pain Manageable: Yes Adequeate Hydration: Yes Anesthesia Complications: No Block Receding Appropriately: Yes (Level T10 at present) Patient on Ventilator: No Other Comments: VSS - Explained to patient expected postoperative course following spinal and major abdominal surgery. Explained that pain control will be handled by obgyn while on floor and encouraged ambulation when spinal block completely receded. Patient verbalizes understanding. Pain currently 10/18. Orders placed.
[2019-01-03] MEDS ORDERED: NARCAN 0.4 MG/1 ML IV PRN ×2 (08:49→08:52)
[2019-01-03] MEDS ORDERED: ZOFRAN IV PRN (08:49)
[2019-01-03] MEDS ORDERED: TUCKS PAD TP PRN (08:52)
[2019-01-03] MEDS ORDERED: ANUCORT-HC PR PRN (08:52)
[2019-01-03] MEDS ORDERED: SENOKOT PO PRN (08:52)
[2019-01-03] MEDS ORDERED: PHENERGAN PR PRN (08:52)
[2019-01-03] MEDS ORDERED: MYLICON PO PRN (08:52)
[2019-01-03] MEDS ORDERED: TYLENOL PO PRN (08:52)
[2019-01-03] MEDS ORDERED: TORADOL IV PRN (08:52)
[2019-01-03] MEDS ORDERED: MILK OF MAGNESIA PO PRN (08:52)
[2019-01-03] MEDS ORDERED: MORPHINE IV PRN ×2 (08:52)
[2019-01-03] MEDS ORDERED: SODIUM CHLORIDE FLUSH SYRINGE 10 ML IV NR ×2 (09:00)
[2019-01-03] MEDS: DILAUDID IV PRN ×3 (09:09→09:52)
[2019-01-03] MEDS: FEOSOL PO SCH (10:25)
[2019-01-03] MEDS: PRENATAL VITAMIN PO SCH (10:25)
[2019-01-03 11:06] LABS: Alanine Aminotransferase 7 units/L (7-56); Albumin 2.8 g/dL (3.9-5); BUN/Creatinine Ratio 13; Blood Urea Nitrogen 5 mg/dL (7-17); Calcium 8.1 mg/dL (8.4-10.2); Hemolysis Index 0
[2019-01-03 11:38] LABS: Bilirubin,Direct < 0.2 mg/dL (0-0.2)
[2019-01-03] MEDS: TORADOL IV PRN ×2 (12:45→20:37)
[2019-01-03] MEDS ORDERED: TORADOL ONE (12:45)
[2019-01-03] MEDS: D5LR 1,000 ML IV SCH ×2 (13:07→20:42)
[2019-01-03 14:59] LABS: Hepatitis C Virus Antibody Non-Reactive (NonReactive)
[2019-01-03] MEDS: NORCO 5/325 PO PRN (17:19)
[2019-01-03 20:59] LABS: Hematocrit 30.4 % (30.3-42.9); Hemoglobin 9.6 gm/dl (10.1-14.3)
[2019-01-04] MEDS: IBUPROFEN PO PRN ×3 (04:00→17:14)
[2019-01-04] MEDS: PERCOCET 5/325 PO PRN (04:00)
--- NOTE | 2019-01-04 08:23 | Progress Note ---
Assessment and Plan A/P POD#1 s/p repeat csec hx of hydronephrosis - nephrology consult while in hospital VSS await postop cbc today B+ no rhogam routine Postop care Subjective - Subjective Date of service: 01/04/19 Principal diagnosis: s/p repeat csec Interval history: This is a 28 yo at 37 WEEKS WITH ONLY ONE VISIT TO [place]. lIMITED RECORDS. PATIENT is a patient referred to [facility] for obesity and EIF and hx of 4th degree. She has not returned since 30 weeks. She is here today for contractions noted to be 4cm and loretta with previous csec. Patient reports: appetite normal, voiding normally, pain well controlled, flatus, ambulating normally [place]: doing well Objective - Vital Signs Latest vital signs: Vital Signs Temp Pulse Resp BP BP Pulse Ox 01/03/19 22:30 98.7 F 79 18 102/77 01/03/19 17:19 20 01/03/19 17:13 98.4 F 75 20 104/56 100 01/03/19 11:30 115/46 01/03/19 10:27 97.9 F 71 22 117/36 96 01/03/19 10:00 74 16 104/56 99 01/03/19 09:45 81 18 100/52 99 01/03/19 09:30 69 22 103/50 99 01/03/19 09:15 68 22 100/43 99 01/03/19 09:09 15 01/03/19 09:00 64 19 101/42 99 01/03/19 08:55 86 18 98/53 99 01/03/19 08:50 78 20 102/42 99 01/03/19 08:44 98.2 F 80 22 100/43 99 Intake and Output 01/03/19 01/04/19 01/04/19 23:59 07:59 15:59 Intake Total 1492.917 Output Total 2200 1600 Balance -707.083 -1600 Intake: IV 1072.917 D5lr 1,000 ml @ 125 mls/ 947.917 hr IV DIRECT VIKTOR Rx#: [id number] Hand 125 Oral 120 Intake, Free Water 300 Output: Urine 2200 1600 Indwelling Catheter 1600 Void 600 1600 Other: Total, Intake Amount 120 Total, Output Amount 600 800 # Voids Void 1 1 - Exam Breasts: Present: normal Cardiovascular: Present: Regular rate, Normal S1 Lungs: Present: Clear to auscultation, Normal air movement Abdomen: Present: normal appearance, soft, normal bowel sounds. Absent: distention, tenderness, guarding Vulva: both: normal Uterus: Present: normal, firm, fundal height below umbilicus. Absent: bogginess, tenderness Extremities: Present: normal Deep Tendon Reflex Grade: Normal +2 Incision: Present: normal, dry, intact - Labs Labs: Abnormal lab results 01/03/19 01/03/19 Range/Units 10:21 20:12 Hgb 9.6 L (10.1-14.3) gm/dl BUN 5 L (7-17) mg/dL Creatinine 0.4 L (0.7-1.2) mg/dL Calcium 8.1 L (8.4-10.2) mg/dL Total Protein 5.6 L (6.3-8.2) g/dL Albumin 2.8 L (3.9-5) g/dL
[2019-01-04] MEDS ORDERED: BOOSTRIX IM ONE (08:54)
[2019-01-04] MEDS ORDERED: M-M-R II VACCINE SUB-Q ONE (08:54)
[2019-01-04] MEDS: PRENATAL VITAMIN PO SCH (09:29)
[2019-01-04] MEDS: FEOSOL PO SCH (09:29)
[2019-01-04] MEDS: NORCO 5/325 PO PRN ×2 (09:30→17:18)
--- NOTE | 2019-01-04 16:35 | Ultrasound Report ---
PROCEDURE: US RENAL BILAT TECHNIQUE: Real-time sonography was performed of the kidneys with image documentation. HISTORY: Hydronephrosis. COMPARISONS: Ultrasound kidneys 02/03/2017 . FINDINGS: Examination of the kidneys demonstrates both to be normal in size and have normal cortical echogenici ty and thickness. The right and left kidneys measure 12.6 cm and 12.3 cm in craniocaudal length, resp ectively. No evidence for calculi, hydronephrosis, or solid mass is seen in either kidney. The urinary bladder is not optimally distended but shows no intraluminal abnormality or wall thickeni ng. IMPRESSION: Negative ultrasound of the kidneys. This document is electronically signed by Flower Garvey MD., Jan 04 2019 04:33:12 PM ET
[2019-01-05] MEDS: NORCO 5/325 PO PRN ×2 (00:51→05:53)
[2019-01-05] MEDS: IBUPROFEN PO PRN ×3 (00:51→15:26)
--- NOTE | 2019-01-05 08:15 | Progress Note ---
Assessment and Plan A: POD#2 s/p repeat section at term obesity, asymptomatic anemia P: Routine care. Anticipate discharge tomorrow. Subjective - Subjective Date of service: 01/05/19 Principal diagnosis: s/p repeat csec Interval history: Pt without complaints. + Flatus. No bowel movement yet. Patient reports: appetite normal, voiding normally, pain well controlled, flatus, ambulating normally, no bowel movement [place]: in NICU Objective - Vital Signs Latest vital signs: Vital Signs Temp Pulse Resp BP BP Pulse Ox 01/05/19 00:28 98.0 F 91 H 18 100/39 100 01/04/19 16:33 98.5 F 91 H 18 119/70 99 01/04/19 13:11 98.1 F 69 18 125/75 98 01/04/19 08:22 98.4 F 84 22 113/64 99 Intake and Output 01/04/19 01/05/19 01/05/19 22:59 06:59 14:59 Intake Total 2040 400 Balance 2040 400 Intake: Oral 960 400 Intake, Free Water 1080 Other: Total, Intake Amount 360 200 # Voids Void 1 - Exam Breasts: Present: deferred Cardiovascular: Present: Regular rate Lungs: Present: Clear to auscultation Abdomen: Present: soft (obese ), normal bowel sounds Uterus: Present: fundal height at umbilicus Extremities: Present: edema (trace ) Incision: Present: intact
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
[2019-01-05] MEDS: FEOSOL PO SCH (08:39)
[2019-01-05] MEDS: PRENATAL VITAMIN PO SCH (08:40)
[2019-01-05] MEDS: PERCOCET 5/325 PO PRN ×2 (08:40→15:25)
--- NOTE | 2019-01-05 13:52 | Event Note ---
Date: 01/05/19 Consulted Nephrology for Hydronephrosis. Renal US is normal and showed no hydronephrosis. Renal function is normal.
[2019-01-06] MEDS: PERCOCET 5/325 PO PRN ×2 (00:59→17:34)
[2019-01-06] MEDS: IBUPROFEN PO PRN ×3 (01:00→17:35)
[2019-01-06] MEDS: LANSINOH TP PRN ×2 (11:09→17:36)
[2019-01-06] MEDS: FEOSOL PO SCH (11:09)
[2019-01-06] MEDS: PRENATAL VITAMIN PO SCH (11:09)
[2019-01-06 17:10] VITALS: BP 142/58
== END 2019-01-06 17:39 | disposition home or self-care (01) | DRG 766 ==
LOC: TRG 04:43 → LD 06:09 → APU 06:25 → OB 12:42
PROVIDERS: ADMIT Obstetrics & Gynecology; ATTEND Obstetrics & Gynecology
PROC: 10D00Z1 Extraction of Products of Conception, Low, Open Approach (ICD-10-PCS; principal; 2019-01-03)
PROC: 3E0234Z Introduction of Serum, Toxoid and Vaccine into Muscle, Percutaneous Approach (ICD-10-PCS; 2019-01-03)
DX: O34.211 Maternal care for low transverse scar from previous cesarean delivery (principal); E66.9 Obesity, unspecified; O99.214 Obesity complicating childbirth; O99.02 Anemia complicating childbirth; D64.9 Anemia, unspecified; Z82.49 Family history of ischemic heart disease and other diseases of the circulatory system; Z3A.37 37 weeks gestation of pregnancy; Z37.0 Single live birth; Z83.3 Family history of diabetes mellitus; Z82.3 Family history of stroke; Z82.0 Family history of epilepsy and other diseases of the nervous system; Z23 Encounter for immunization
CPT/HCPCS: 36415; 59025; 76770; 80053; 80076; 85014; 85018; 85025; 86592; 86706; 86762; 86803; 86850; 86900; 86901; 87806; G0378; A6250; C1765; C9250; J0690; J1170; J1885; J2270; J2370; J2590; J2765; J3010; J3105; J7120; J7121; Q0177

== ENCOUNTER 2020-10-31 20:53 | Emergency (ER) | payer MEDICAID ==
[2020-10-31 21:13] VITALS: BP 141/60
--- NOTE | 2020-10-31 21:13 | Event Note ---
ED Screening Note Date of service: 10/31/20 Time: 21:12 ED Screening Note: Patient complains of a painful abscess near her rectum x5 days Denies history of pilonidal abscesses This initial assessment/diagnostic orders/clinical plan/treatment(s) is/are subject to change based on patients health status, clinical progression and re- assessment by fellow clinical providers in the ED. Further treatment and workup at subsequent clinical providers discretion. Patient/guardian urged not to elope from the ED as their condition may be serious if not clinically assessed and managed. Initial orders include: Further eval in ACC
[2020-10-31] MEDS ORDERED: SULFAMETHOXAZOLE/TRIMETHOPRIM 800/160MG DS TAB PO ONE (22:28)
[2020-10-31] MEDS ORDERED: IBUPROFEN 600 MG TAB PO ONE (22:28)
[2020-10-31] MEDS ORDERED: oxyCODONE /ACETAMINOPHEN 5-325MG TAB PO ONE (22:28)
[2020-10-31] MEDS ORDERED: ONDANSETRON 4 MG ODT TAB PO ONE (22:28)
[2020-10-31] MEDS ORDERED: CLINDAMYCIN 150 MG CAP PO ONE (23:00)
--- NOTE | 2020-10-31 23:06 | Emergency Department Report ---
ED General Adult HPI - General Chief complaint: Skin/Abscess/Foreign Body Stated complaint: BOIL PAINFUL Time Seen by Provider: 10/31/20 21:08 Source: patient Mode of arrival: Ambulatory Limitations: No Limitations - History of Present Illness Initial comments: Patient is a 30-year-old -[place] female with no past medical history except chronic renal disease during who presents to the ED with complaint of acute onset persistent painful swollen erythematous maculopapular rash with purulent discharge on the left gluteus for the last 5 days. Patient states that in the last 2 days, the pain is worsened and now has thick purulent discharge draining from the open wound. Patient states that the symptoms started after she had complete waxing of her gluteal area 7 days ago. Patient denies fever, chills, nausea, vomiting, dizziness, syncope, chest pain or shortness of breath, diarrhea, abdominal pain, numbness and tingling or weakness of lower extremities bilaterally or low back pain, dysuria, urinary frequency and urgency or vaginal bleeding, traumatic injury or cough. MD Complaint: Left gluteus painful swollen rash with purulent discharge -: Sudden, days(s) (5) Location: buttocks (Left) Radiation: non-radiation Severity scale (0 -10): 7 Quality: aching, sharp Consistency: constant Improves with: none Worsens with: movement, rest Associated Symptoms: denies other symptoms, loss of appetite, malaise, rash (Swollen erythematous maculopapular painful rash with purulent discharge on the left gluteal cleft). denies: confusion, chest pain, cough, diaphoresis, fever/chills, headaches, nausea/vomiting Treatments Prior to Arrival: none - Related Data Previous Rx's Medication Instructions Recorded Last Taken Type Ferrous Sulfate [Feosol 325 MG tab] 325 mg PO BID #30 tablet 01/03/19 Unknown Rx Ibuprofen [Motrin] 600 mg PO Q8H PRN #30 tablet 01/03/19 Unknown Rx oxyCODONE /ACETAMINOPHEN [Percocet 1 tab PO Q6HR PRN #30 tablet 01/03/19 Unknown Rx 5/325] Vit-Fe Fumar-FA [ 1 tab PO QDAY #30 tablet 01/05/19 Unknown Rx Vitamin] Acetaminophen/Codeine [Tylenol 1 tab PO Q6H PRN #12 tab 10/31/20 Unknown Rx /Codeine # 3 tab] Clindamycin [Clindamycin CAP] 300 mg PO Q8HR #60 capsule 10/31/20 Unknown Rx Ibuprofen [Motrin] 800 mg PO Q8HR PRN #30 tablet 10/31/20 Unknown Rx Ondansetron [Zofran Odt] 4 mg PO Q6HR PRN #15 tab.rapdis 10/31/20 Unknown Rx Sulfamethoxazole/Trimethoprim 1 each PO Q12H #20 tablet 10/31/20 Unknown Rx [Bactrim DS TAB] Allergies Allergy/AdvReac Type Severity Reaction Status Date / Time No Known Allergies Allergy Verified 10/31/20 21:08 ED Review of Systems ROS: Stated complaint: BOIL PAINFUL Other details as noted in HPI Constitutional: denies: chills, fever Eyes: denies: eye pain, eye discharge, vision change ENT: denies: ear pain, throat pain Respiratory: denies: cough, shortness of breath, wheezing Cardiovascular: denies: chest pain, palpitations Endocrine: no symptoms reported Gastrointestinal: denies: abdominal pain, nausea, diarrhea Genitourinary: denies: urgency, dysuria, discharge Musculoskeletal: denies: back pain, joint swelling, arthralgia Skin: rash (Painful swollen erythematous maculopapular rash on left gluteal cleft with purulent discharge), change in color. 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 - Surgical History Additional Surgical History: Episiotomy - Social History Smoking Status: Never Smoker Substance Use Type: None - Medications Home Medications: Home Medications Medication Instructions Recorded Confirmed Last Taken Type Ferrous Sulfate [Feosol 325 MG tab] 325 mg PO BID #30 tablet 01/03/19 Unknown Rx Ibuprofen [Motrin] 600 mg PO Q8H PRN #30 tablet 01/03/19 Unknown Rx oxyCODONE /ACETAMINOPHEN [Percocet 1 tab PO Q6HR PRN #30 tablet 01/03/19 Unknown Rx 5/325] Vit-Fe Fumar-FA [ 1 tab PO QDAY #30 tablet 01/05/19 Unknown Rx Vitamin] Acetaminophen/Codeine [Tylenol 1 tab PO Q6H PRN #12 tab 10/31/20 Unknown Rx /Codeine # 3 tab] Clindamycin [Clindamycin CAP] 300 mg PO Q8HR #60 capsule 10/31/20 Unknown Rx Ibuprofen [Motrin] 800 mg PO Q8HR PRN #30 tablet 10/31/20 Unknown Rx Ondansetron [Zofran Odt] 4 mg PO Q6HR PRN #15 tab.rapdis 10/31/20 Unknown Rx Sulfamethoxazole/Trimethoprim 1 each PO Q12H #20 tablet 10/31/20 Unknown Rx [Bactrim DS TAB] ED Physical Exam - General Limitations: No Limitations General appearance: alert, in no apparent distress - Head Head exam: Present: atraumatic, normocephalic, normal inspection - Eye Eye exam: Present: normal appearance, PERRL, EOMI Pupils: Present: normal accommodation - ENT ENT exam: Present: normal exam, normal orophraynx, mucous membranes moist, TM's normal bilaterally, normal external ear exam - Neck Neck exam: Present: normal inspection, full ROM - Respiratory Respiratory exam: Present: normal lung sounds bilaterally. Absent: respiratory distress, wheezes, rales, stridor, chest wall tenderness, accessory muscle use, decreased breath sounds - Cardiovascular Cardiovascular Exam: Present: regular rate, normal rhythm, normal heart sounds. Absent: systolic murmur, diastolic murmur, rubs, gallop - GI/Abdominal GI/Abdominal exam: Present: soft, normal bowel sounds. Absent: tenderness, guarding, rebound, hyperactive bowel sounds, hypoactive bowel sounds, organomegaly - Extremities Exam Extremities exam: Present: normal inspection, full ROM, normal capillary refill - Back Exam Back exam: Present: normal inspection, full ROM. Absent: tenderness, CVA tenderness (R), CVA tenderness (L), muscle spasm, paraspinal tenderness, vertebral tenderness - Neurological Exam Neurological exam: Present: alert, oriented X3, CN II-XII intact, normal gait, reflexes normal - Psychiatric Psychiatric exam: Present: normal affect, normal mood - Skin Skin exam: Present: warm, dry, intact, rash (Erythematous maculopapular severely tender localized swollen fluctuant rash on left gluteal cleft with purulent discharge) ED Course Vital Signs 10/31/20 21:10 Temperature 99.7 F H Pulse Rate 84 Respiratory 16 Rate Blood Pressure 141/60 O2 Sat by Pulse 100 Oximetry ED Medical Decision Making - Medical Decision Making This is a 30-year-old -[place] female with no past medical history except chronic renal disease during who presents to the ED with complaint of acute onset persistent painful swollen erythematous maculopapular rash with purulent discharge on the left gluteus for the last 5 days. Patient states that in the last 2 days, the pain is worsened and now has thick purulent discharge draining from the open wound. Patient states that the symptoms started after she had complete waxing of her gluteal area 7 days ago. In the ED, patient is alert and oriented x3 and is not in distress. Patient was treated for pain in the ED and also given initial oral antibiotics. The draining abscess wound was cleaned and dressed appropriately and the patient will discharge home on pain medications and antibiotics. Patient was advised to follow-up with her primary care physician in 5 to 7 days for reevaluation or return to the ED immediately if symptoms get worse. - Differential Diagnosis Cutaneous abscess; cellulitis; folliculitis Critical care attestation.: If time is entered above; I have spent that time in minutes in the direct care of this critically ill patient, excluding procedure time. ED Disposition Clinical Impression: Cutaneous abscess of buttock, Cellulitis of left buttock Disposition: DC-01 TO HOME OR SELFCARE Is pt being admited?: No Does the pt Need Aspirin: No Condition: Stable Instructions: Cellulitis, Adult, [id number], Skin Abscess, [id number] Additional Instructions: Take medication with food, drink plenty of fluids and follow-up with your primary care physician in 7 to 10 days for reevaluation. Return to the ED immediately if symptoms get worse. Prescriptions: Sulfamethoxazole/Trimethoprim [Bactrim DS TAB] 1 each PO Q12H #20 tablet Clindamycin [Clindamycin CAP] 300 mg PO Q8HR #60 capsule Ibuprofen [Motrin] 800 mg PO Q8HR PRN #30 tablet PRN Reason: Pain , Severe (7-10) Acetaminophen/Codeine [Tylenol /Codeine # 3 tab] 1 tab PO Q6H PRN #12 tab PRN Reason: Pain , Severe (7-10) Ondansetron [Zofran Odt] 4 mg PO Q6HR PRN #15 tab.rapdis PRN Reason: Nausea Referrals: SIENNA HORNER MD [Primary Care Provider] - 3-5 Days Forms: Work/School Release Form(ED) Time of Disposition: 23:07 Print Language: PERSIAN
== END 2020-10-31 23:33 | disposition home or self-care (01) ==
LOC: ED 20:53
DX: L03.317 Cellulitis of buttock (principal); Z79.899 Other long term (current) drug therapy
CPT/HCPCS: 99283; Q0162